=== PATIENT | male | born 1980 | race Caucasian/White ===

== ENCOUNTER 2016-09-07 09:09 | Emergency (ER) | payer OTHER, MEDICAID ==
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
[2016-09-07 09:48] LABS: % IMMATURE GRANULYOCYTES 0.3 % (0.0-1.1); ABSOLUTE IMMATURE GRANULOCYTES 0.03 10^3/uL (0.00-0.10); ADD DIFF? NO; ADD MORPH? NO; ADD SCAN? NO; ATYPICAL LYMPHOCYTE FLAG 0 (0-99); FRAGMENT RBC FLAG 0 (0-99); HEMATOCRIT 43.6 % (40.0-51.0); HEMOGLOBIN 15.4 g/dL (13.7-17.5); LEFT SHIFT FLG 0 (0-99); LIPEMIA HEMOLYSIS FLAG 90 (0-99); MEAN CELL HEMOGLOBIN 31.4 pg (27.9-34.1); MEAN CELL HEMOGLOBIN CONCENTR. 35.3 g/dL (32.4-36.7); MEAN PLATELET VOLUME 9.9 fL (8.7-11.7); PLATELET CLUMPS FLAG 10 (0-99); PLATELET COUNT 190 10^3/uL (150-400)
[2016-09-07 10:09] LABS: ANION GAP 11 mEq/L (8-16); CALCIUM 9.5 mg/dL (8.5-10.4); CARBON DIOXIDE 23 mEq/l (22-31); CHLORIDE 106 mEq/L (97-110); CREATININE 0.7 mg/dL (0.7-1.3); ETHANOL SERUM < 10 mg/dL (0-10); GLOMERULAR FILTRATION RATE > 60; GLUCOSE 86 mg/dL (70-100); POTASSIUM 4.4 mEq/L (3.5-5.2); SODIUM 140 mEq/L (134-144)
[2016-09-07] MEDS ORDERED: LORazepam 2 MG/ML INJ IVP ONE (16:42)
[2016-09-07] MEDS ORDERED: HALOPERIDOL LACT 5 MG/ML INJ IVP ONE (16:42)
[2016-09-07 18:37] VITALS: RESP 16
[2016-09-08 03:04] VITALS: BP 123/69; PULSE 73; TEMP 98.2; O2SAT 94
== END 2016-09-08 02:35 | disposition home or self-care (01) ==
LOC: EDUNIT#
DX: F19.10 Other psychoactive substance abuse, uncomplicated (principal); F17.200 Nicotine dependence, unspecified, uncomplicated
CPT/HCPCS: 96374; 96375; 99284; J1200; J2060; 80305; G0480

== ENCOUNTER 2016-12-10 18:08 | Emergency (ER) | payer OTHER, MEDICAID ==
[2016-12-10 18:16] VITALS: BP 134/78; PULSE 90; RESP 20; TEMP 97.5; O2SAT 98
--- NOTE | 2016-12-10 18:35 | CPEKG ---
Heart Rate: 86 RR Interval: 698 P-R Interval: 144 QRSD Interval: 86 QT Interval: 348 QTC Interval: 417 P Babylon: 72 QRS [place]: 79 T Wave [place]: 37 EKG Severity - NORMAL ECG - EKG Impression: SINUS RHYTHM Electronically Signed By: Danielle Almendarez 13-Dec-2016 21:23:45
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
== END 2016-12-10 19:39 | disposition left against medical advice (07) ==
DX: R07.89 Other chest pain (principal); L03.114 Cellulitis of left upper limb; F17.200 Nicotine dependence, unspecified, uncomplicated

== ENCOUNTER 2016-12-10 22:15 | Emergency (ER) | payer OTHER, MEDICAID ==
[2016-12-10 22:23] VITALS: TEMP 98.6
--- NOTE | 2016-12-10 22:42 | EDPHY ---
H & P Stated Complaint: swelling, redness, pain right forearm; here earlier HPI/ROS: HPI CHIEF COMPLAINT: Left arm swelling and redness, seen her earlier HISTORY OF PRESENT ILLNESS: This patient very pleasant 36-year-old male, presents emergency room with left arm swelling redness and warmth. States he was seen here earlier but refused I and D. He has returned as he thinks he would like this drained. Denies IV drug use. Past Medical History: Denies medical history Past Surgical History: Denies surgical history Social History: Denies daily use drugs alcohol tobacco products. Family History: Noncontributory ROS REVIEW OF SYSTEMS: A comprehensive 10 point review of systems is otherwise negative aside from elements mentioned in the history of present illness. Exam Constitutional appears nontoxic triage nursing summary reviewed, vital signs reviewed, awake/alert. Eyes normal conjunctivae and sclera, EOMI, PERRLA. HENT normal inspection, atraumatic, moist mucus membranes, no epistaxis, neck supple/ no meningismus, no raccoon eyes. Respiratory clear to auscultation bilaterally, normal breath sounds, no respiratory distress, no wheezing. Cardiovascular rate normal, regular rhythm, no murmur, no edema, distal pulses normal. Gastrointestinal soft, non-tender, no rebound, no guarding, normal bowel sounds, no distension, no pulsatile mass. Genitourinary no CVA tenderness. Musculoskeletal no midline vertebral tenderness, full range of motion, no calf swelling, no tenderness of extremities, no meningismus, good pulses, neurovascularly intact. Skin left forearm erythematous and swelling and warmth present, area 4 cm x 4 cm. Neurologic awake, alert and oriented x 3, AAOx3, moves all 4 extremities equally, motor intact, sensory intact, CN II-XII intact, normal cerebellar, normal vision, normal speech. Psychiatric normal mood/affect. Heme/Lymph/Immune no lymphadenopathy. Differential Diagnosis: Includes but is not limited to in a particular order left arm cellulitis, left arm abscess. Medical Decision Making: Plan for this patient basic blood work, ultrasound left upper extremity at bedside to rule out significant pocket of infection. Re-evaluation: I did perform a bedside ultrasound I do not appreciate any significant large pocket of infection there is a little tiny fluid collection. Please see separate I+D note by Ai ZURITA. Unable to extrude any pus on his I and D. Patient be started on warm compresses Keflex and Bactrim. Keflex and Bactrim here. Sodium is noted to be 139, potassium 3.5, chloride 101 glucose 112, BUN 11, creatinine 0.6, hematocrit 42, hemoglobin 14.3 CBC resulted white count 01402, hemoglobin 14.9, crit 43.6 225AM: Labs are reviewed. Mild leukocytosis. Left arm cellulitis. Will be started on Keflex and Bactrim here in the emergency room. Keflex and Bactrim prescription we did a bedside ultrasound may have been a really small fluid collection seen on ultrasound.. We did attempt to drain it as I thought there was a small fluid collection. However unable to drain any ex significant pus. I do recommend he started on 1 compresses, takes Keflex and Bactrim. He understands return emergency room if develops any worsening symptoms questions or concerns. Final diagnosis left arm cellulitis. Start on Keflex and Bactrim. Patient understands return emergency room if develops worsening symptoms questions or concerns. Source: Patient - Personal History Current Tetanus/Diphtheria Vaccine: Yes Current Tetanus Diphtheria and Acellular Pertussis (TDAP): Yes Tetanus Vaccine Date: <10 years - Medical/Surgical History Hx Asthma: No Hx Chronic Respiratory Disease: No Hx Diabetes: No Hx Cardiac Disease: No Hx Renal Disease: No Hx Cirrhosis: No Hx Alcoholism: No Hx HIV/AIDS: No Hx Splenectomy or Spleen Trauma: No Other PMH: TBI, ADHD, schizophrenic/iv meth use - Social History Smoking Status: Current every day smoker Constitutional: Initial Vital Signs Temperature (C) 37 C 12/10/16 22:21 Heart Rate 96 12/10/16 22:21 Respiratory Rate 20 12/10/16 22:21 Blood Pressure 154/88 H 12/10/16 22:21 O2 Sat (%) 97 12/10/16 22:21 O2 Delivery Mode Room Air Allergies/Adverse Reactions: No Known Allergies Allergy (Verified 12/10/16 18:12) Home Medications: Medication Instructions Recorded Neurontin 12/10/15 Seroquel 12/10/15 Medical Decision Making - Data Points Laboratory Results: Laboratory Results 12/11/16 00:44 12/11/16 00:44 12/11/16 12/11/16 12/11/16 01:35 00:44 00:44 WBC 12.33 10^3/uL H 10^3/uL (3.80-9.50) RBC 4.97 10^6/uL 10^6/uL (4.40-6.38) Hgb 14.9 g/dL g/dL (13.7-17.5) POC Hgb 14.3 gm/dL gm/dL (13.7-17.5) Hct 43.6 % % (40.0-51.0) POC Hct 42 % % (40-51) MCV 87.7 fL fL (81.5-99.8) MCH 30.0 pg pg (27.9-34.1) MCHC 34.2 g/dL g/dL (32.4-36.7) RDW 12.5 % % (11.5-15.2) Plt Count 201 10^3/uL 10^3/uL (150-400) MPV 9.5 fL fL (8.7-11.7) Neut % (Auto) 82.3 % H % (39.3-74.2) Lymph % (Auto) 9.3 % L % (15.0-45.0) Delta % (Auto) 6.7 % % (4.5-13.0) Eos % (Auto) 0.7 % % (0.6-7.6) Baso % (Auto) 0.6 % % (0.3-1.7) Nucleat RBC Rel Count 0.0 % % (0.0-0.2) Absolute Neuts (auto) 10.14 10^3/uL H 10^3/uL (1.70-6.50) Absolute Lymphs (auto) 1.15 10^3/uL 10^3/uL (1.00-3.00) Absolute Monos (auto) 0.83 10^3/uL H 10^3/uL (0.30-0.80) Absolute Eos (auto) 0.09 10^3/uL 10^3/uL (0.03-0.40) Absolute Basos (auto) 0.07 10^3/uL 10^3/uL (0.02-0.10) Absolute Nucleated RBC 0.00 10^3/uL 10^3/uL (0-0.01) Immature Gran % 0.4 % % (0.0-1.1) Immature Gran # 0.05 10^3/uL 10^3/uL (0.00-0.10) ESR 5 MM/HR MM/HR (0-15) POC Sodium 139 mEq/L mEq/L (134-144) Sodium 141 mEq/L mEq/L (134-144) POC Potassium 3.5 mEq/L mEq/L (3.3-5.0) Potassium 3.9 mEq/L mEq/L (3.5-5.2) POC Chloride 101 mEq/L mEq/L (97-110) Chloride 103 mEq/L mEq/L (97-110) Carbon Dioxide 26 mEq/l mEq/l (22-31) Anion Gap 12 mEq/L mEq/L (8-16) POC BUN 11 mg/dL mg/dL (7-23) BUN 13 mg/dL mg/dL (7-23) Creatinine 0.7 mg/dL mg/dL (0.7-1.3) POC Creatinine 0.6 mg/dL L mg/dL (0.7-1.3) Estimated GFR > 60 Glucose 102 mg/dL H mg/dL (70-100) POC Glucose 112 mg/dL H mg/dL (70-100) Calcium 9.0 mg/dL mg/dL (8.5-10.4) C-Reactive Protein Pending Point of Care Test Results: 12/11/16 01:35 POC Sodium 139 POC Potassium 3.5 POC Chloride 101 POC BUN 11 POC Creatinine 0.6 L POC Glucose 112 H Departure - Departure Disposition: Home, Routine, Self-Care Clinical Impression: Left arm cellulitis Condition: Good Instructions: Cellulitis (ED) Additional Instructions: 1. Return emergency room if develops worsening redness, swelling, pain or fever. 2. Warm compresses 5 times a day. 3. Take antibiotics as prescribed. Referrals: NONE *PRIMARY CARE P,. [Primary Care Provider] - As per Instructions
[2016-12-11 00:51] LABS: % IMMATURE GRANULYOCYTES 0.4 % (0.0-1.1); ABSOLUTE IMMATURE GRANULOCYTES 0.05 10^3/uL (0.00-0.10); ADD DIFF? NO; ADD MORPH? NO; ADD SCAN? NO; ATYPICAL LYMPHOCYTE FLAG 0 (0-99); FRAGMENT RBC FLAG 0 (0-99); HEMATOCRIT 43.6 % (40.0-51.0); HEMOGLOBIN 14.9 g/dL (13.7-17.5); LEFT SHIFT FLG 0 (0-99); LIPEMIA HEMOLYSIS FLAG 90 (0-99); MEAN CELL HEMOGLOBIN CONCENTR. 34.2 g/dL (32.4-36.7); MEAN CELL VOLUME 87.7 fL (81.5-99.8); MEAN PLATELET VOLUME 9.5 fL (8.7-11.7); PLATELET CLUMPS FLAG 0 (0-99); PLATELET COUNT 201 10^3/uL (150-400); RED BLOOD CELL COUNT 4.97 10^6/uL (4.40-6.38); RED CELL DISTRIBUTION WIDTH 12.5 % (11.5-15.2)
[2016-12-11 01:10] LABS: SEDIMENTATION RATE 5 MM/HR (0-15)
[2016-12-11 01:44] LABS: CHLORIDE 103 mEq/L (97-110); POTASSIUM 3.9 mEq/L (3.5-5.2); SODIUM 141 mEq/L (134-144)
[2016-12-11] MEDS ORDERED: SULFAMETHOX/TMP 800/160 MG 1 TAB ONE (02:31)
[2016-12-11] MEDS ORDERED: CEPHALEXIN 500 MG CAP PO ONE (02:31)
[2016-12-11 04:53] LABS: ANION GAP 12 mEq/L (8-16); CARBON DIOXIDE 26 mEq/l (22-31); CREATININE 0.7 mg/dL (0.7-1.3); GLOMERULAR FILTRATION RATE > 60; GLUCOSE 102 mg/dL (70-100)
[2016-12-11 05:08] VITALS: BP 131/69; PULSE 97; RESP 18; O2SAT 94
[2016-12-11 05:16] LABS: C-REACTIVE PROTEIN 21.8 mg/L (<10.0)
== END 2016-12-11 03:08 | disposition home or self-care (01) ==
LOC: EDUNIT#
DX: L03.114 Cellulitis of left upper limb (principal)
CPT/HCPCS: 82947-QW

== ENCOUNTER 2016-12-19 08:31 | Emergency (ER) | payer OTHER, MEDICAID ==
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
[2016-12-19 08:42] VITALS: RESP 18; TEMP 98.2
[2016-12-19] MEDS ORDERED: IOPAMIDOL (ISOVUE-300) 100 ML BTL ONE (09:59)
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
[2016-12-19 13:19] VITALS: BP 138/84; PULSE 92; O2SAT 98
== END 2016-12-19 13:20 | disposition home or self-care (01) ==
LOC: EDUNIT#
PROC: 0H9EXZZ Drainage of Left Lower Arm Skin, External Approach (ICD-10-PCS; principal; 2016-12-19)
PROC: 0HQBXZZ Repair Right Upper Arm Skin, External Approach (ICD-10-PCS; principal; 2016-12-19)
DX: S41.111A Laceration without foreign body of right upper arm, initial encounter (principal); L02.414 Cutaneous abscess of left upper limb; X99.1XXA Assault by knife, initial encounter
CPT/HCPCS: 10060; 12032; 73201; 99285; Q9967; 82947-QW

== ENCOUNTER 2017-09-20 14:57 | Emergency (ER) | payer MEDICAID, OTHER ==
[2017-09-20] MEDS ORDERED: HEPARIN/DEXTROSE 25,000 UNIT/500 ML BAG ONE (17:05)
--- NOTE | 2017-09-20 17:12 | EDPHY ---
H & P Stated Complaint: hand infection, teeth hurt, finger infection Time Seen by Provider: 09/20/17 17:01 HPI/ROS: CHIEF COMPLAINT: Skin infection HISTORY OF PRESENT ILLNESS: Patient is a 37-year-old IV drug abuser who comes to the emergency department complaining of an abscess to the palm of his right hand. It is been present for 4 5 days. He states that it was draining but then seemed to heal up now there is infection behind. He also has abrasion to his right knee and left hand dorsally that are slightly erythematous but no purulence and no fluctuance. No fevers. He is requesting antibiotics. REVIEW OF SYSTEMS: Constitutional: denies: chills, fever, recent illness, recent injury EENTM: denies: blurred vision, double vision, nose congestion Respiratory: denies: cough, shortness of breath Cardiac: denies: chest pain, irregular heart rate, lightheadedness, palpitations Gastrointestinal/Abdominal: denies: abdominal pain, diarrhea, nausea, vomiting, blood streaked stools Genitourinary: denies: dysuria, frequency, hematuria, pain Musculoskeletal: denies: joint pain, muscle pain Skin: See HPI Neurological: denies: headache, numbness, paresthesia, tingling, dizziness, weakness Hematologic/Lymphatic: denies: blood clots, easy bleeding, easy bruising Immunologic/allergic: denies: HIV/AIDS, transplant EXAM: GENERAL: Well-appearing, well-nourished and in no acute distress. HEAD: Atraumatic, normocephalic. EYES: Pupils equal round and reactive to light, extraocular movements intact, sclera anicteric, conjunctiva are normal. ENT: TMs normal, nares patent, oropharynx clear without exudates. Moist mucous membranes. NECK: Normal range of motion, supple without lymphadenopathy or JVD. LUNGS: Breath sounds clear to auscultation bilaterally and equal. No wheezes rales or rhonchi. HEART: Regular rate and rhythm without murmurs, rubs or gallops. ABDOMEN: Soft, nontender, normoactive bowel sounds. No guarding, no rebound. No masses appreciated. BACK: No CVA tenderness, no spinal tenderness, step-offs or deformities EXTREMITIES: Normal range of motion, no pitting or edema. No clubbing or cyanosis. NEUROLOGICAL: Cranial nerves II through XII grossly intact. Normal speech, normal gait. 5/5 strength, normal movement in all extremities, normal sensation PSYCH: Normal mood, normal affect. SKIN: To by the 3 cm abscess to the palm of right hand, the overlying skin is thin. There is a healed lesion in the middle that will need to be and removed. Also abrasions to right knee and left hand that appears slightly and erythematous. No purulence or fluctuance. Source: Patient Exam Limitations: No limitations - Personal History Current Tetanus/Diphtheria Vaccine: Yes Current Tetanus Diphtheria and Acellular Pertussis (TDAP): Yes Tetanus Vaccine Date: <10 years - Medical/Surgical History Hx Asthma: No Hx Chronic Respiratory Disease: No Hx Diabetes: No Hx Cardiac Disease: No Hx Renal Disease: No Hx Cirrhosis: No Hx Alcoholism: No Hx HIV/AIDS: No Hx Splenectomy or Spleen Trauma: No Other PMH: TBI, ADHD, schizophrenic/iv meth use - Family History Significant Family History: No pertinent family hx - Social History Smoking Status: Current every day smoker Alcohol Use: Sober Drug Use: None Constitutional: Initial Vital Signs Temperature (C) 37 C 09/20/17 15:03 Heart Rate 89 09/20/17 15:03 Respiratory Rate 16 09/20/17 15:03 Blood Pressure 107/71 09/20/17 15:03 O2 Sat (%) 98 09/20/17 15:03 O2 Delivery Mode Room Air Allergies/Adverse Reactions: No Known Allergies Allergy (Verified 12/10/16 18:12) Home Medications: Medication Instructions Recorded Sulfamethox/Tmp 800/160 mg 1 tab PO BID #14 tab 09/20/17 [Bactrim Ds] Medical Decision Making Procedures: Procedure: Abscess drainage. The patient's abscess was located on the right hand. I obtained verbal consent from the patient to drain the abscess who was informed about the possibility of bleeding and pain. The abscess was unroofed with for sepsis and approximately 4 cc of purulent drainage was expressed. I irrigated the wound and placed some packing. The patient tolerated the procedure well. The procedure was performed by myself. ED Course/Re-evaluation: 5:40 p.m. patient tolerated the procedure well. He has been given antibiotics and his wound has been dressed. We discussed follow-up and indications for returning. Differential Diagnosis: Partial list of the Differential diagnosis considered include but were not limited to; abscess, cellulitis and although unlikely based on the history and physical exam, I also considered sepsis. I discussed these differential diagnoses and the plan with the patient as well as the usual and expected course. The patient understands that the diagnosis is provisional and that in medicine we are not always correct and that further workup is often warranted. Usual and customary warnings were given. All of the patient's questions were answered. The patient was instructed to return to the emergency department should the symptoms at all worsen or return, otherwise to followup with the physician as we discussed. - Data Points Medications Given: Discontinued Medications Trimethoprim/Sulfamethoxazole (Bactrim Ds) 1 ea PO EDNOW ONE PRN Reason: Protocol Stop: 09/20/17 17:29 Last Admin: 09/20/17 17:51 Dose: 1 ea Departure - Departure Disposition: Home, Routine, Self-Care Clinical Impression: Abscess of right hand, Wound infection Condition: Fair Instructions: Sulfamethoxazole/Trimethoprim (By mouth), Abscess (ED) Referrals: NONE *PRIMARY CARE P,. [Primary Care Provider] - As per Instructions [facility],. [Clinic] - 1-2 days without fail Prescriptions: Sulfamethox/Tmp 800/160 mg [Bactrim Ds] 1 tab PO BID #14 tab
[2017-09-20] MEDS ORDERED: SULFAMETHOX/TMP 800/160 MG 1 TAB PO ONE (17:28)
[2017-09-20 17:59] VITALS: BP 104/73
== END 2017-09-20 17:59 | disposition home or self-care (01) ==
DX: L02.511 Cutaneous abscess of right hand (principal); F17.200 Nicotine dependence, unspecified, uncomplicated
CPT/HCPCS: 99283; J1644

== ENCOUNTER 2017-12-24 19:59 | Emergency (ER) | payer OTHER ==
[2017-12-24] MEDS ORDERED: LORazepam 1 MG TAB PO ONE ×2 (20:14→23:15)
[2017-12-24] MEDS ORDERED: PALIPERIDONE 3 MG TAB.ER PO ONE (20:14)
--- NOTE | 2017-12-24 20:17 | EDPHY ---
H & P Smoking Status: Current every day smoker Time Seen by Provider: 12/24/17 20:00 HPI/ROS: CHIEF COMPLAINT: Altered HISTORY OF PRESENT ILLNESS: The patient was at the [facility] [place] for detox and he is tells me he went there at 1400. He was transferred by EMS for further evaluation. He tells me he has been doing methamphetamine and benzodiazepines, the last dose was yesterday. He says he feels like"I need to be back in the hospital"and he thinks that his mental health disorder is getting out of control. He denies hallucinations. He denies suicidal or homicidal ideation. He does tell me that he is having"trouble thinking"and wants to receive oral Invega. REVIEW OF SYSTEMS: Eye: no change in vision ENT: no sore throat Cardiac: no chest pain or syncope Pulmonary: no cough or SOB Abdomen: no vomiting, diarrhea, abdominal pain Musculoskeletal: no back pain Skin: no rash Neuro: no headache Constitutional: no fever : no urinary symptoms A comprehensive 10 point review of systems is otherwise negative aside from elements mentioned in the history of present illness. PAST MEDICAL HISTORY: Previous note dated 05/02/2013 reviewed includes bipolar disorder and methamphetamine abuse. Social history: Drug use as above, no alcohol. General Appearance: Alert and conversant, cooperative. Eyes: No scleral icterus. Pupils 3 mm extraocular motion intact. ENT, Mouth: Normal mucous membranes. Respiratory: Normal respiratory effort, breath sounds equal, lungs are clear to auscultation. Cardiovascular: Regular rate and rhythm. Gastrointestinal: Abdomen is soft and non tender. Neurological: Alert, face symmetric, normal motor and sensory in extremities. Skin: Warm and dry, no rashes. Musculoskeletal: No peripheral edema. Psychiatric: Patient has a flat affect. He talks while looking at the wall and is reluctant to make eye contact. He does have some rambling speech but is able to focus when directed and answer questions. He is requesting a mental health evaluation. Emergency Department course/MDM: Urine tox, screening labs, oral Ativan 1 mg, Invega 6 mg orally. Mental health evaluation. Signed out to Dr. Lee with mental health evaluation pending. (Erlin Luna) Constitutional: Initial Vital Signs Temperature (C) 37.1 C 12/24/17 20:00 Heart Rate 85 12/24/17 20:00 Respiratory Rate 18 12/24/17 20:00 Blood Pressure 122/66 H 12/24/17 20:00 O2 Sat (%) 96 12/24/17 20:00 O2 Delivery Mode Room Air Allergies/Adverse Reactions: No Known Allergies Allergy (Verified 12/24/17 20:12) Home Medications: Medication Instructions Recorded NK [No Known Home Meds] 12/24/17 Medical Decision Making ED Course/Re-evaluation: 21:00 I assumed care of this patient at shift change. Mental health evaluation pending. 21:37 Patient currently ready for mental health evaluation. 22:00 Notified by nurse that the mental health fire engineer may be unable to get to this patient tonight as there are two other evaluations pending. The patient is not on a hold; he arrived voluntarily for evaluation. He does not meet criteria for mental health hold. He denies suicidal ideation or homicidal ideation. He is not gravely disabled. Plan to discharge home in good condition to follow up with [facility] tomorrow in the outpatient setting. (Nitish Lee) I took over care of this patient at 7:00 a.m.. This patient is here for methamphetamine and benzodiazepine abuse as well as threatening behavior. The patient was evaluated by Behavior[facility] Health yesterday evening. He was threatening and would not contract for safety. The patient is to be evaluated by Behavioral Health again this morning. 11:30 a.m., the patient has been seen and evaluated by Behavioral Health. He is not suicidal. He does not meet criteria for admission. He has been cleared for discharge by Behavioral Health. Resources have been provided with him. Follow-up discussed. Return to emergency department precautions reviewed. All of his questions were answered. He was discharged from the emergency department in good condition. (Rajesh De Dios) Other Provider: [id number] Pt seen by mental health provider. Pt is threatening and not steffi for safety. They are recommending re-evaluation in the morning. I have placed the patient on a detainer. [id number] patient signed out to Dr. De Dios pending mental health evaluation. I have had no issues during my care this patient overnight. (Christian Steiner) - Data Points Laboratory Results: Laboratory Results 12/24/17 20:44 12/24/17 20:44 Medications Given: Discontinued Medications Lorazepam (Ativan) 1 mg PO EDNOW ONE Stop: 12/24/17 20:15 Last Admin: 12/24/17 20:47 Dose: 1 mg Lorazepam (Ativan) 2 mg PO EDNOW ONE Stop: 12/24/17 23:16 Last Admin: 12/24/17 23:16 Dose: 2 mg Paliperidone (Invega) 6 mg PO EDNOW ONE Stop: 12/24/17 20:15 Last Admin: 12/24/17 20:30 Dose: 6 mg Departure - Departure Disposition: Home, Routine, Self-Care Clinical Impression: Polysubstance abuse Altered mental status Qualifiers: Altered mental status type: unspecified Qualified Code(s): R41.82 - Altered mental status, unspecified Condition: Good Instructions: [facility] Additional Instructions: Follow up with [facility] tomorrow. Return to the ED for thoughts of self-harm, racing thoughts or other concerns. Referrals: [facility],. [Clinic] - As per Instructions
[2017-12-24 20:53] LABS: PLATELET COUNT 170 10^3/uL (150-400)
[2017-12-24] MEDS ORDERED: LORazepam 1 MG TAB ONE (23:12)
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
[2017-12-25 11:54] VITALS: BP 136/85
== END 2017-12-25 11:53 | disposition home or self-care (01) ==
LOC: EDUNIT#
DX: R41.82 Altered mental status, unspecified (principal); F15.10 Other stimulant abuse, uncomplicated; F13.10 Sedative, hypnotic or anxiolytic abuse, uncomplicated
CPT/HCPCS: 80305; G0480

== ENCOUNTER 2018-01-16 22:33 | Observation (INO) | payer MEDICAID, OTHER ==
[2018-01-16] MEDS ORDERED: NS 1,000 ML IV ONE (22:39)
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
[2018-01-16 22:54] LABS: PLATELET COUNT 252 10^3/uL (150-400)
[2018-01-16 23:03] LABS: INR 1.06 (0.83-1.16)
[2018-01-16] MEDS ORDERED: ACETAMINOPHEN 500 MG TAB PO ONE (23:18)
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
[2018-01-16] MEDS ORDERED: LR 1,000 ML IV SCH (23:45)
[2018-01-16] MEDS ORDERED: HYDROCODONE/APAP 5/325 TAB PO PRN (23:52)
[2018-01-16] MEDS ORDERED: ONDANSETRON 4 MG/2 ML VIAL IVP PRN (23:52)
[2018-01-17] MEDS: DIAZEPAM 5 MG TAB PO PRN ×2 (00:16→08:52)
[2018-01-17] MEDS: IBUPROFEN 600 MG TAB PO SCH ×2 (05:08→16:12)
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
--- NOTE | 2018-01-17 15:46 | PDCONSULT ---
Exercise Equipment Repair Technician Note: Repeat CTH reviewed today and shows stable hemorrhage in left temporal lobe. Patient is GCS 15. Neurosurgery will sign off and no follow up needed per discussion with Dr. Davison
[2018-01-17 15:57] VITALS: BP 130/80
--- NOTE | 2018-01-17 16:17 | ASMTCMCOM ---
CM Note CM Note Notes: CM met with pt. Pt is being discharged. CAGE completed. Pt given warm clothes and a bed reserved at [facility]. Pt given a bus pass. D/C Plan: [facility]. Date Signed: 01/17/2018 04:16 PM Electronically Signed By:Richelle Cat
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
== END 2018-01-17 16:50 | disposition home or self-care (01) ==
LOC: OBSVTOIN 23:56 → INTOOBSV 23:56 → F2N 01-17 00:03
PROVIDERS: ADMIT Surgery; ATTEND Surgery
PROC: 0HQ0XZZ Repair Scalp Skin, External Approach (ICD-10-PCS; principal; 2018-01-16)
DX: S06.360A Traumatic hemorrhage of cerebrum, unspecified, without loss of consciousness, initial encounter (principal); S01.01XA Laceration without foreign body of scalp, initial encounter; S02.2XXA Fracture of nasal bones, initial encounter for closed fracture; E86.9 Volume depletion, unspecified; F15.90 Other stimulant use, unspecified, uncomplicated; J32.4 Chronic pansinusitis; F31.9 Bipolar disorder, unspecified; F20.9 Schizophrenia, unspecified; F17.210 Nicotine dependence, cigarettes, uncomplicated; Y00.XXXA Assault by blunt object, initial encounter; Y93.9 Activity, unspecified; Z59.0 Homelessness
CPT/HCPCS: 12004; 70450; 70486; 71045; 72125; 92523; 96361; 96374; 96376; 97161; 97165; 99285; G0378; G8978; G8979; G8980; G8987; G8988; G8989; G9165; G9166; G9167; J2270; G0480

== ENCOUNTER 2018-02-05 22:58 | Emergency (ER) | payer OTHER, MEDICAID ==
[2018-02-05] MEDS ORDERED: ACETAMINOPHEN 500 MG TAB PO ONE (23:15)
--- NOTE | 2018-02-05 23:18 | EDPHY ---
H & P Time Seen by Provider: 02/05/18 23:08 HPI/ROS: CHIEF COMPLAINT: Altered mental status HISTORY OF PRESENT ILLNESS: The patient is a 37-year-old male brought here by ambulance for altered mental status at the homeless correction today. The patient admits to using methamphetamines today. States he is concerned about his circulation and that he has a headache. He denies any injury to his head. Denies any suicidal or homicidal ideation. Denies any head injury. According to nursing who evaluated the patient he had 2 different wall it is on his person and 1 was identified as a young female college student. REVIEW OF SYSTEMS: Constitutional: No fever, no chills. Eyes: No discharge. ENT: No sore throat. Cardiovascular: No chest pain, no palpitations. Respiratory: No cough, no shortness of breath. Gastrointestinal: No abdominal pain, no vomiting. Genitourinary: No hematuria. Musculoskeletal: No back pain. Skin: No rashes. Neurological: + headache. Smoking Status: Current every day smoker Physical Exam: General Appearance: Alert and no distress. ENT: normal dentition. No tonsillar exudate or swelling. Eyes: Pupils equal and round no injection. Respiratory: Chest is nontender, lungs are clear to auscultation. Cardiac: regular rate and rhythm. No lower extremity edema Gastrointestinal: Abdomen is soft and nontender, no masses, bowel sounds normal. Musculoskeletal: Neck is supple and nontender. Extremities have full range of motion and are nontender without deformity Skin: No rashes or lesions. Neuro: Cranial nerves grossly intact. No nystagmus. Normal [id number] testing. No ulnar drift. Equal grasp bilateral hands. Ambulatory. Constitutional: Initial Vital Signs Temperature (C) 36.5 C 02/05/18 23:00 Heart Rate 69 02/05/18 23:00 Respiratory Rate 18 02/05/18 23:00 Blood Pressure 128/84 H 02/05/18 23:00 O2 Sat (%) 100 02/05/18 23:00 O2 Delivery Mode Room Air Allergies/Adverse Reactions: No Known Allergies Allergy (Verified 12/24/17 20:12) Home Medications: Medication Instructions Recorded NK [No Known Home Meds] 01/17/18 Medical Decision Making ED Course/Re-evaluation: 37-year-old male brought here by ambulance for altered mental status. Patient is alert and oriented and has no suicidal or homicidal ideation. He does admit to using methamphetamines today. He is cooperative. He shows no signs of injury. His vital signs are within normal limits. He was given Tylenol for headache and his headache improved. He is medically cleared for incarceration. Differential Diagnosis: Brain bleed, polysubstance abuse, metabolic encephalopathy, polysubstance abuse - Data Points Medications Given: Discontinued Medications Acetaminophen (Tylenol) 1,000 mg PO EDNOW ONE Stop: 02/05/18 23:16 Last Admin: 02/05/18 23:35 Dose: 1,000 mg Departure - Departure Disposition: Home, Routine, Self-Care Clinical Impression: Methamphetamine use Condition: Fair Instructions: Methamphetamine Abuse (ED) Additional Instructions: The patient is medically cleared for incarceration Referrals: NONE *PRIMARY CARE P,. [Primary Care Provider] - As per Instructions [facility],. [Clinic] - As per Instructions
[2018-02-05] MEDS ORDERED: OLANZapine 5 MG TAB PO ONE (23:22)
[2018-02-06 00:13] VITALS: BP 132/82
== END 2018-02-06 00:13 | disposition home or self-care (01) ==
LOC: EDUNIT#
DX: F15.920 Other stimulant use, unspecified with intoxication, uncomplicated (principal); F17.200 Nicotine dependence, unspecified, uncomplicated

== ENCOUNTER 2018-02-06 00:29 | Emergency (ER) | payer OTHER, MEDICAID ==
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
[2018-02-06 00:37] VITALS: BP 120/66
== END 2018-02-06 00:43 | disposition home or self-care (01) ==
DX: S00.01XA Abrasion of scalp, initial encounter (principal); F17.200 Nicotine dependence, unspecified, uncomplicated; W22.8XXA Striking against or struck by other objects, initial encounter; Y92.818 Other transport vehicle as the place of occurrence of the external cause; Y93.9 Activity, unspecified; Y99.9 Unspecified external cause status

== ENCOUNTER 2018-06-02 06:30 | Emergency (ER) | payer OTHER, MEDICAID ==
[2018-06-02 06:34] VITALS: BP 147/84
--- NOTE | 2018-06-02 06:52 | EDPHY ---
H & P Stated Complaint: L foot pain-denies trauma Time Seen by Provider: 06/02/18 06:42 - Personal History Current Tetanus Diphtheria and Acellular Pertussis (TDAP): Yes Tetanus Vaccine Date: <10 years - Medical/Surgical History Hx Asthma: No Hx Chronic Respiratory Disease: No Hx Diabetes: No Hx Cardiac Disease: No Hx Renal Disease: No Hx Cirrhosis: No Hx Alcoholism: No Hx HIV/AIDS: No Hx Splenectomy or Spleen Trauma: No Other PMH: TBI, ADHD, schizophrenic/iv meth use - Social History Smoking Status: Current every day smoker Constitutional: Initial Vital Signs Temperature (C) 36.4 C 06/02/18 06:32 Heart Rate 86 06/02/18 06:32 Respiratory Rate 16 06/02/18 06:32 Blood Pressure 147/84 H 06/02/18 06:32 O2 Sat (%) 94 06/02/18 06:32 O2 Delivery Mode Room Air Allergies/Adverse Reactions: No Known Allergies Allergy (Verified 06/02/18 06:32) Home Medications: Medication Instructions Recorded NK [No Known Home Meds] 01/17/18 Medical Decision Making ED Course/Re-evaluation: CHIEF COMPLAINT: Left foot pain HISTORY OF PRESENT ILLNESS: 38-year-old homeless gentleman who was just arrested on warrants. When he was arrested he claimed that he had severe left foot pain and could walk. The police brought him here for assessment of his left foot pain. Patient denies trauma. REVIEW OF SYSTEMS: A comprehensive 10 system review of systems is otherwise negative aside from elements mentioned in the history of present illness and medical decision making. PHYSICAL EXAM: HR, BP, O2 Sat, RR. Temp noted General Appearance: Alert, well hydrated, appropriate, and non-toxic appearing. Head: Atraumatic without scalp tenderness or obvious injury Eyes: Pupils equal, round, reactive to light and accommodation, EOMI, no trauma , no injection. Ears: Clear bilaterally, no perforation, normal landmarks Nose: Atraumatic, no rhinorrhea, clear. Throat: There is no erythema or exudates, no lesions, normal tonsils, mucus membranes moist. Neck: Supple, 2+ carotid upstroke, nontender, no lymphadenopathy. Respiratory: No retractions, no distress, no wheezes, and no accessory muscle use. Lungs are clear to auscultation bilaterally. Cardiovascular: Regular rate and rhythm, no murmurs, rubs, or gallops. Bilateral carotid, radial, dorsalis pedis, and posterior tibial pulses intact. Good capillary refill all extremities. Gastrointestinal: Abdomen is soft, nontender, non-distended, no masses, no rebound, no guarding, no peritoneal signs. Musculoskeletal: Pain to palpation along the medial aspect of the left foot. No obvious skin changes or deformity. Normal active ROM of all extremities, atraumatic. Neurological: Alert, appropriate, and interactive. The patient has normal DTRs and non-focal cranial nerves, motor, sensory, and cerebellar exam. Skin: No rashes, good turgor, no nodules on palpation. Past medical history: Noncontributory Past surgical history: Noncontributory Family history: Noncontributory Social history: Homeless, verbally abusive to staff, single, unemployed, alcohol abuse DIAGNOSTICS/PROCEDURES/CRITICAL CARE TIME: Study: Foot and ankle x-rays Indication: Foot pain Results: After viewing the images myself on the PACS system. My interpretation of the images is: no acute process. The radiologist interpretation is pending at the time of this dictation. DIFFERENTIAL DIAGNOSIS: Fracture, sprain, contusion, strain MEDICAL DECISION MAKING: This patient has no osseous deformity on the x-ray. I believe he is most likely malingering on his way to prison. He is clear for prison Departure - Departure Disposition: Home, Routine, Self-Care Clinical Impression: Foot pain, left Condition: Good Instructions: Metatarsalgia (DC) Referrals: Patient,NotPresent [Primary Care Provider] - As per Instructions
== END 2018-06-02 06:55 | disposition home or self-care (01) ==
LOC: EDUNIT#
DX: M79.672 Pain in left foot (principal); Z59.0 Homelessness

== ENCOUNTER 2018-07-18 23:21 | Emergency (ER) | payer OTHER, MEDICAID ==
--- NOTE | 2018-07-18 23:28 | EDPHY ---
General - History Smoking Status: Current every day smoker Time Seen by Provider: 07/18/18 23:28 Narrative: PHYSICIAN DOCUMENTATION: The patient was evaluated and managed by the Physician Skiing Instructor. My co- signature indicates that I have reviewed this chart and I agree with the findings and plan of care as documented. I am the secondary supervising physician. (Monse Mckee) CLINICAL IMPRESSION: Left hand pain ASSESSMENT/PLAN: Patient is a 38-year-old male currently homeless who presents to the emergency department with atraumatic left hand pain. Patient is nontoxic-appearing, he is in no acute distress on arrival. Patient was unable to isolate exactly where his pain was. On physical examination of his hand while palpating he denied any pain and in fact stated "that feels good can you keep rubbing it". There was no erythema, ecchymosis, edema or open wounds. He had full ROM of hand and wrist. There were no findings to suggest acute traumatic injury, fracture, dislocation, compartment syndrome, upper extremity DVT, carpal tunnel, cellulitis, septic arthritis or neurovascular compromise. I did not feel that imaging was warranted based on physical examination. His history and physical examination is most consistent with left hand pain, unclear etiology. Patient was given ibuprofen and Tylenol in the emergency department, and ice pack was provided. Upon discharge the patient became verbally aggressive demanding his belongings. His belongings were accidentally left on the ambulance, they were obtained and returned to the patient without incident. The patient was noted to be using his hand without difficulty and without discomfort, query malingering behavior. He does have an appointment scheduled on Friday at [facility], I discussed the importance of keeping this appointment. Return precautions discussed-patient to return to the emergency Department for significantly worsening or uncontrolled pain, significant swelling, numbness or tingling of the extremity, paleness or coolness of his digits, fever or for any other concerning symptom. The patient verbalizes understanding and he is in agreement with this plan. DIFFERENTIAL DX: Differential diagnosis including but not limited to infection, traumatic injury , fracture, dislocation, compartment syndrome, DVT, septic arthritis ED COURSE: 0034: Upon discharge the patient became upset as his belongings are not with him. Security was present, his belongings were recovered and returned to the patient without incident. CHIEF COMPLAINT: Left hand pain HPI: Patient is a 38-year-old male who is brought in by ambulance from the homeless [facility] with complaints of atraumatic left hand pain. Patient reports that he has had on and off pain in his left hand, does not know how long it has been going on however states it increased suddenly this evening. He denies any recent or remote trauma to this hand. He denies any swelling, open wounds or deformity. He has not tried taking anything for pain. Patient is somewhat of a difficult historian, when asked where exactly his hand hurts he points all over. Denies any other complaints. PAST MEDICAL HISTORY: TBI, attention deficit hyperactivity disorder, schizophrenia Family History: Not contributory Social History: Current everyday smoker, marijuana, history of IV methamphetamine use ROS: A full 10 point review of systems was negative except for those mentioned in HPI. PHYSICAL EXAM: General Appearance: Alert, disheveled, not toxic-appearing. HEENT: TMs are clear bilaterally no perforation or FB, no injection, no evidence of serous or mucopurulent otitis. Oropharynx clear is no erythema or exudates, no tonsillar hypertrophy or asymmetry. Dentition without abnormality. Eyes: PERRLA, no acute vision change, nystagmus, swelling, discharge, pain or photosensitivity. Conjunctiva pink, no pallor or injection Neck: Supple, nontender, no lymphadenopathy, no midline pain, FROM. Respiratory: There are no retractions, lungs are clear to auscultation. Cardiac: Regular rate and rhythm, no murmurs or gallops. Gastrointestinal: Abdomen is soft, nontender, bowel sounds normal, no masses/ hernia, no rigidity, guarding or focal peritoneal findings. Skin: Warm, dry, no rashes, no nodules on palpation. Upper Extremities: Hands are dirty. Right upper extremity is unremarkable- Intact distal pulses, Full range of motion intact, no tenderness, no ecchymosis or edema. Left upper extremity reveals normal appearing hand without obvious wounds, erythema, edema, ecchymosis or bony deformity. There is a small abrasion overlying the dorsal aspect of the left hand in the 1st webspace. I am unable to isolate any areas of pain on palpation. On examination of his hand the patient states "that feels good can you keep rubbing it". Hand and wrist with full range of motion. Two point discrimination is intact distally. Radial pulses 2+. Patient is able to supinate and pronate without difficulty. The forearm compartment is soft. The radial, ulnar and median nerves were all tested. Radial nerve: Patient is able to extend wrist and fingers of the local joints. Ulnar nerve: Patient is able to abduct all fingers. Median nerve patient is able to oppose thumb to pinky. Lower Extremities: Intact distal pulses, No edema, No tenderness, No cyanosis, full range of motion intact, No calf tenderness bilaterally. MEDICAL DECISION MAKING: Patient was seen independently. Secondary supervising physician at time of evaluation was Dr. Mckee, she did not evaluate this patient. Diagnosis: Left hand pain. New, requires workup Summary: See Assessment and Plan for summary of ED visit Clinical lab tests: Not applicable. Independent visualization of images, tracing, or specimens: Not applicable. Decision to obtain medical records or history from someone other than the patient: No Review / Summarize previous medical records: Yes Discussed patient with another provider: Yes, Dr. Mckee Patient Progress: Stable, discharge. (Lizette Barnes) - Objective Vital Signs: Initial Vital Signs Temperature (C) 36.8 C 07/18/18 23:28 Heart Rate 84 07/18/18 23:28 Respiratory Rate 18 07/18/18 23:28 Blood Pressure 133/82 H 07/18/18 23:28 O2 Sat (%) 98 07/18/18 23:28 O2 Delivery Mode Room Air Allergies/Adverse Reactions: haloperidol [From Haldol] Allergy (Verified 07/18/18 23:27) Home Medications: Medication Instructions Recorded Gabapentin 07/18/18 Zyprexa 07/18/18 Medications Given: Discontinued Medications Acetaminophen (Tylenol) 650 mg PO EDNOW ONE Stop: 07/18/18 23:36 Last Admin: 07/18/18 23:42 Dose: 650 mg Ibuprofen (Motrin) 400 mg PO EDNOW ONE Stop: 07/18/18 23:36 Last Admin: 07/18/18 23:43 Dose: 400 mg Departure - Departure Disposition: Home, Routine, Self-Care Clinical Impression: Hand pain, left Condition: Good Instructions: Arthralgia (ED) Additional Instructions: DISCHARGE INSTRUCTIONS FROM YOUR DOCTOR Thank you for visiting our emergency department today. Please keep in mind that discharge from the emergency department does not mean that there is nothing wrong - it simply means that we have not identified an emergency condition that requires further evaluation or treatment in the hospital. [facility] for your appointment that is already scheduled. Rest, ice (on and off), elevate the wrist and hand as possible above the level of the heart to decrease pain and swelling. For pain control: You may take Tylenol, I recommend 500-1000 mg every 6-8 hours as needed. Take with food and a full glass of water. Stop taking if this is upsetting her stomach. Do not exceed 4000 mg in a 24 hr period. You may also take ibuprofen, recommend 400 mg every 6 hr. Take with food and a full glass of water. Stop taking if this upsets her stomach. Do not exceed 2400 mg in a 24 hr period. Continue your regular medications as prescribed. Return for increased pain or swelling, numbness, tingling or weakness of the fingers, discoloration of the fingers, fever,inability to move your fingers or any other new, worsening or worrisome symptoms. People present with illnesses and injuries in different ways, and it is always possible that we have missed something. You may always return for re-evaluation if symptoms worsen or if they are not improving or if you develop new/different symptoms. Again, thank you for choosing our emergency department. We hope that you feel better. Referrals: [facility],. [Clinic] - As per Instructions
[2018-07-18 23:30] VITALS: BP 133/82
[2018-07-18] MEDS ORDERED: ACETAMINOPHEN 325 MG TAB PO ONE (23:35)
[2018-07-18] MEDS ORDERED: IBUPROFEN 200 MG TAB PO ONE (23:35)
== END 2018-07-19 00:54 | disposition home or self-care (01) ==
LOC: EDUNIT#
DX: M79.642 Pain in left hand (principal); Z59.0 Homelessness

== ENCOUNTER 2018-08-11 11:03 | Emergency (ER) | payer OTHER, MEDICAID ==
--- NOTE | 2018-08-11 11:21 | EDPHY ---
H & P Stated Complaint: erratic behavior Source: Patient, Police, EMS Exam Limitations: Intoxication - Personal History Tetanus Vaccine Date: <10 years - Medical/Surgical History Hx Asthma: No Hx Chronic Respiratory Disease: No Hx Diabetes: No Hx Cardiac Disease: No Hx Renal Disease: No Hx Cirrhosis: No Hx Alcoholism: No Hx HIV/AIDS: No Hx Splenectomy or Spleen Trauma: No Other PMH: TBI, ADHD, schizophrenic/iv meth use - Social History Smoking Status: Current every day smoker Time Seen by Provider: 08/11/18 11:20 HPI/ROS: HPI: This is a 38-year-old male who presents with Chief Complaint: [facility] for erratic behavior Location: Psychiatric Quality: Erratic behavior, meth use Duration: Unknown Signs and Symptoms: + hallucinations, no suicidal ideation, no homicidal ideation, no abdominal pain, no nausea, no vomiting Timing: Acute on chronic Severity: Severe Context: Patient presents via [facility] police on M1 hold for erratic behavior. Patient was found trespassing several times. Police were called several times by home owners. Patient was approached by police he stated that the year was the . Patient has a history of schizophrenia and IV methamphetamine use. Modifying Factors: None Comment: ROS: A comprehensive 10 system review of systems is otherwise negative aside from elements mentioned in the history of present illness. MEDICAL/SURGICAL/SOCIAL HISTORY: Medical history: TBI, ADHD, schizophrenic/iv meth use Surgical history: Denies Social history: Homeless. Current every day tobacco user. Family history noncontributory. CONSTITUTIONAL: Anxious, moving and fidgeting constantly, untidy adult white male, awake and alert, no obvious distress HEENT: Atraumatic and normocephalic, PERRL, EOMI. Nares patent; no rhinorrhea; no nasal mucosal edema. Tympanic membranes clear. Oropharynx clear, no exudate and moist pink mucosa. Airway patent. No lymphadenopathy. No meningismus. Cardiovascular: Normal S1/S2, regular rate, regular rhythm, without murmur rub or gallop. PULMONARY/CHEST: Symmetrical and nontender. Clear to auscultation bilaterally. Good air movement. No accessory muscle usage. ABDOMEN: Soft, nondistended, nontender, no rebound, no guarding, no peritoneal signs, no masses or organomegaly. No CVAT. EXTREMITIES: 2/2 pulses, strength 5/5, no deformities, no clubbing, no cyanosis or edema. NEUROLOGICAL: no focal neuro deficits. GCS 15. speech slurred and pressured. SKIN: Warm and dry, leathery, no erythema. no rash. Good capillary refill. (Mai Peng) Constitutional: Initial Vital Signs Temperature (C) 36.8 C 08/11/18 11:07 Heart Rate 90 08/11/18 11:07 Respiratory Rate 16 08/11/18 11:07 Blood Pressure 140/89 H 08/11/18 11:07 O2 Sat (%) 96 08/11/18 11:07 O2 Delivery Mode Room Air Allergies/Adverse Reactions: haloperidol [From Haldol] Allergy (Verified 08/11/18 11:06) Home Medications: Medication Instructions Recorded Gabapentin 07/18/18 Zyprexa 07/18/18 Medical Decision Making ED Course/Re-evaluation: Vital signs reviewed and stable upon arrival. Agree with [facility] hold Labs and urine drug screen ordered. Given IV Ativan 2 mg. 1330: Reassessed patient who is sleeping soundly. 1500: Reassessed patient and still sleeping soundly. Not easily aroused. 1547: Patient ambulating back and forth to the bathroom. Appropriate to discharge to the [facility]. This patient was seen under the supervision of my secondary supervising physician. I evaluated and cared for this patient independently. (Mai Peng) I did not see this patient while he was in the emergency department. However his care was discussed with the PA while the patient was in the department. I agree with treatment plan and management (Geremias Reed) Differential Diagnosis: Differential diagnosis includes but is not limited to major depression, anxiety disorder, schizophrenia, bipolar disorder, intoxicant use, suicidal ideation, psychosis, miriam. (Mai Peng) - Data Points Laboratory Results: Laboratory Results 08/11/18 11:20 08/11/18 11:20 Medications Given: Discontinued Medications Lorazepam (Ativan Injection) 2 mg IVP EDNOW ONE Stop: 08/11/18 11:30 Last Admin: 08/11/18 11:38 Dose: 2 mg Departure - Departure Disposition: Home, Routine, Self-Care Clinical Impression: Amphetamine use disorder, moderate Condition: Fair Instructions: Methamphetamine Abuse (ED) Additional Instructions: Please refrain from using illegal drugs. Referrals: [facility] [Outside] - As per Instructions [facility] [Outside] - As per Instructions
[2018-08-11] MEDS ORDERED: LORazepam 2 MG/ML INJ IVP ONE (11:29)
[2018-08-11 11:54] LABS: PLATELET COUNT 323 10^3/uL (150-400)
[2018-08-11 16:15] VITALS: BP 124/78
== END 2018-08-11 16:26 | disposition home or self-care (01) ==
LOC: EDUNIT#
DX: F15.129 Other stimulant abuse with intoxication, unspecified (principal); F20.89 Other schizophrenia
CPT/HCPCS: 96374; 99284; J2060; 80305; G0480

== ENCOUNTER 2018-08-11 18:46 | Emergency (ER) | payer OTHER, MEDICAID ==
--- NOTE | 2018-08-11 19:17 | EDPHY ---
H & P Source: Patient Exam Limitations: No limitations - Personal History Tetanus Vaccine Date: <10 years - Medical/Surgical History Hx Asthma: No Hx Chronic Respiratory Disease: No Hx Diabetes: No Hx Cardiac Disease: No Hx Renal Disease: No Hx Cirrhosis: No Hx Alcoholism: No Hx HIV/AIDS: No Hx Splenectomy or Spleen Trauma: No Other PMH: TBI, ADHD, schizophrenic/iv meth use - Family History Significant Family History: No pertinent family hx - Social History Smoking Status: Current every day smoker Alcohol Use: Heavy Drug Use: Other Time Seen by Provider: 08/11/18 18:54 HPI/ROS: CHIEF COMPLAINT: Psychosis HISTORY OF PRESENT ILLNESS: The patient is a 38-year-old homeless polysubstance abuser with a history of schizophrenia who is brought to the emergency department [facility] for paranoid thoughts and tangental disorganized speech. He was here earlier today for intoxication. He denies any recent illness or fevers. He is supposed to be taking Seroquel but states that he does not. He denies suicidality but has a hard time verbalizing his intentions. Appears to have intrusive thoughts about government. Severity: Moderate Modifying factors: None REVIEW OF SYSTEMS: Constitutional: denies: chills, fever, recent illness, recent injury EENTM: denies: blurred vision, double vision, nose congestion Respiratory: denies: cough, shortness of breath Cardiac: denies: chest pain, irregular heart rate, lightheadedness, palpitations Gastrointestinal/Abdominal: denies: abdominal pain, diarrhea, nausea, vomiting, blood streaked stools Genitourinary: denies: dysuria, frequency, hematuria, pain Musculoskeletal: denies: joint pain, muscle pain Skin: denies: lesions, rash, jaundice, bruising Neurological: denies: headache, numbness, paresthesia, tingling, dizziness, weakness Hematologic/Lymphatic: denies: blood clots, easy bleeding, easy bruising Immunologic/allergic: denies: HIV/AIDS, transplant 10 systems reviewed and negative except as noted EXAM: GENERAL: Well-appearing, well-nourished and in no acute distress. HEAD: Atraumatic, normocephalic. EYES: Pupils equal round and reactive to light, extraocular movements intact, sclera anicteric, conjunctiva are normal. ENT: TMs normal, nares patent, oropharynx clear without exudates. Moist mucous membranes. NECK: Normal range of motion, supple without lymphadenopathy or JVD. LUNGS: Breath sounds clear to auscultation bilaterally and equal. No wheezes rales or rhonchi. HEART: Regular rate and rhythm without murmurs, rubs or gallops. ABDOMEN: Soft, nontender, normoactive bowel sounds. No guarding, no rebound. No masses appreciated. BACK: No CVA tenderness, no spinal tenderness, step-offs or deformities EXTREMITIES: Normal range of motion, no pitting or edema. No clubbing or cyanosis. NEUROLOGICAL: Cranial nerves II through XII grossly intact. Normal speech, normal gait. 5/5 strength, normal movement in all extremities, normal sensation , normal reflexes PSYCH: Accepting, somewhat angry, nonsensical language, dirty and does show old. Does not admit to hallucinations. SKIN: Warm, dry, normal turgor, no visible rashes or lesions. (Guille Villarreal) Constitutional: Initial Vital Signs Temperature (C) 36.8 C 08/11/18 19:00 Heart Rate 96 08/11/18 19:00 Respiratory Rate 18 08/11/18 19:00 Blood Pressure 133/89 H 08/11/18 19:00 O2 Sat (%) 99 08/11/18 19:00 O2 Delivery Mode Room Air Allergies/Adverse Reactions: haloperidol [From Haldol] Allergy (Verified 08/11/18 11:06) Home Medications: Medication Instructions Recorded Gabapentin 07/18/18 Zyprexa 07/18/18 Medical Decision Making ED Course/Re-evaluation: Signed over to Dr. Steiner. 11pm. Pending eval. (Magnus Huerta) 7:30 p.m. the patient is medically cleared based on lab work from earlier today. He was placed on a hold by psychiatric social worker supervisor at the [facility]. They will begin looking for placement. (Guille Villarreal) Differential Diagnosis: Partial list of the Differential diagnosis considered include but were not limited to; schizophrenia, psychosis, polysubstance abuse and although unlikely based on the history and physical exam, I also considered suicidality, head injury, infection. (Guille Villarreal) Other Provider: [address] Huerta pending mental health evaluation. 0515 patient is awake alert. He is acting appropriately. Symptoms consistent with methamphetamine abuse. This is clear from his system. He is steffi for safety. He does not meet hold criteria. He has been seen by Kalen, mental health yoker machine operator. He is medically cleared for discharge. The mental health hold has been left it. (Christian Steiner) Departure - Departure Disposition: Home, Routine, Self-Care Clinical Impression: Polysubstance abuse Condition: Fair Instructions: Polysubstance Abuse (ED) Additional Instructions: Follow up with [facility] and [facility] for any concerns. Referrals: [facility],. [Clinic] - As per Instructions [facility],. [Clinic] - As per Instructions
[2018-08-11] MEDS ORDERED: OLANZapine DISINTEGR 10 MG TAB ONE (23:37)
[2018-08-12 05:32] VITALS: BP 138/70
== END 2018-08-12 05:31 | disposition home or self-care (01) ==
LOC: EDUNIT#
DX: F20.9 Schizophrenia, unspecified (principal); F19.10 Other psychoactive substance abuse, uncomplicated; F90.9 Attention-deficit hyperactivity disorder, unspecified type; F10.20 Alcohol dependence, uncomplicated; F17.200 Nicotine dependence, unspecified, uncomplicated; T43.596A Underdosing of other antipsychotics and neuroleptics, initial encounter; Z91.128 Patient's intentional underdosing of medication regimen for other reason; Z59.0 Homelessness; Z87.820 Personal history of traumatic brain injury
CPT/HCPCS: 80305

== ENCOUNTER 2018-08-20 05:36 | Emergency (ER) | payer OTHER, MEDICAID ==
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
[2018-08-20 06:28] VITALS: BP 130/80
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
== END 2018-08-20 06:28 | disposition home or self-care (01) ==
LOC: EDUNIT#
PROC: 0HQ5XZZ Repair Chest Skin, External Approach (ICD-10-PCS; principal; 2018-08-20)
DX: S21.119A Laceration without foreign body of unspecified front wall of thorax without penetration into thoracic cavity, initial encounter (principal); X99.8XXA Assault by other sharp object, initial encounter

== ENCOUNTER 2018-09-01 14:58 | Emergency (ER) | payer OTHER, MEDICAID | END 2018-09-02 05:28 | disposition home or self-care (01) ==

== ENCOUNTER 2018-09-07 00:39 | Emergency (ER) | payer OTHER, MEDICAID | END 2018-09-07 01:31 | disposition home or self-care (01) ==